=== PATIENT | male | born 2000 | race Caucasian/White ===

== ENCOUNTER 2018-07-30 20:32 | Emergency (ER) | payer BC ==
[~2018-07-30] VITALS: Ht 182.9 cm; Wt 68.0 kg
--- NOTE | 2018-07-30 20:47 | ED.ADGEN ---
Adult General Chief Complaint Chief Complaint " I was eating dinner tonight... and my Rt. nut started hurting.... I notice when I got home... it was more swollen... " HPI HPI Patient is a 17 year old male who presents with above hx and complaints of increased swelling in Rt side of testicular sack. Pt. denies and trauma, heavy lifting and no hx of penile discharge. No history of STDs. No history of previous swollen right testicle. Has only one sexual partner and always uses condoms. Did have sex this morning with no complaints. No history immunosuppression. No history of travel. No history of ill contacts. His partner does not complain of any discharge or problems. Patient is normally healthy. Normally follows with Dr. Ballesteros. Patient's right testicle sack is swollen as compared to left. There is no adenopathy. Rates pain 4/10. Declines any pain meds. Review of Systems Review of Systems Constitutional: Denies fever or chills [] Eyes: Denies change in visual acuity, redness, or eye pain [] HENT: Denies nasal congestion or sore throat [] Respiratory: Denies cough or shortness of breath [] Cardiovascular: No additional information not addressed in HPI [] GI: Denies abdominal pain, nausea, vomiting, bloody stools or diarrhea [] : Denies dysuria or hematuria [The]patient has complaints of right testicular pain. Musculoskeletal: Denies back pain or joint pain [] Integument: Denies rash or skin lesions [] Neurologic: Denies headache, focal weakness or sensory changes [] Endocrine: Denies polyuria or polydipsia [] All other systems were reviewed and found to be within normal limits, except as documented in this note. Family History Family History Noncontributory Current Medications Current Medications Current Medications Medications (Trade) Dose Ordered Sig/Jeri Start Time Stop Time Status Last Admin Dose Admin Ceftriaxone Sodium 1 gm/ Sodium Chloride 50 ml @ 100 mls/hr 1X ONCE 07/30/18 23:00 07/30/18 23:29 DC 07/30/18 22:36 100 MLS/HR Ceftriaxone Sodium (Rocephin) 1 gm STK-MED ONCE 07/30/18 22:32 07/30/18 22:33 DC Doxycycline Hyclate 100 mg STK-MED ONCE 07/30/18 23:08 07/30/18 23:09 DC Doxycycline Hyclate (Vibra-Tab) 100 mg 1X ONCE 07/30/18 23:00 07/30/18 23:20 DC 07/30/18 23:11 100 MG Info (Do NOT chart on this entry -- for MONITORING) 1 each PRN DAILY PRN 07/31/18 00:30 07/31/18 02:21 DC Iohexol (Omnipaque 240 Mg/ml) 50 ml 1X ONCE 07/31/18 01:00 07/31/18 01:01 DC 07/31/18 01:14 50 ML Iohexol (Omnipaque 300 Mg/ml) 75 ml 1X ONCE 07/31/18 01:00 07/31/18 01:01 DC 07/31/18 01:13 75 ML Sodium Chloride 50 ml @ As Directed STK-MED ONCE 07/30/18 22:31 07/30/18 22:32 DC See nursing for home meds Allergies Allergies Allergies Coded Allergies Type Severity Reaction Last Updated Verified No Known Drug Allergies 07/31/18 No Physical Exam Physical Exam Constitutional: Well developed, well nourished, no acute distress, non-toxic appearance. Tall. HENT: Normocephalic, atraumatic, bilateral external ears normal, oropharynx moist, no oral exudates, nose normal. [] Eyes: PERRLA, EOMI, conjunctiva normal, no discharge. [] Neck: Normal range of motion, no tenderness, supple, no stridor. [] Cardiovascular:Heart rate regular rhythm, no murmur [] Lungs & Thorax: Bilateral breath sounds clear to auscultation [] Abdomen: Bowel sounds normal, soft, no tenderness, no masses, no pulsatile masses. [] Rt. Testicle sack swollen- Testicle appears non-tender. Trans illumination - appears to be large hydrocele. No sack inflammatory changes. Skin: Warm, dry, no erythema, no rash. [] Back: No tenderness, no CVA tenderness. [] Extremities: No tenderness, no cyanosis, no clubbing, ROM intact, no edema. [] Neurologic: Alert and oriented X 3, normal motor function, normal sensory function, no focal deficits noted. [] Psychologic: Affect anxious, judgement normal, mood normal. [] Current Patient Data Vital Signs Vital Signs Date Time Temp Pulse Resp B/P (MAP) Pulse Ox O2 Delivery O2 Flow Rate FiO2 07/31/18 02:10 99 18 134/90 (105) 99 Room Air 07/30/18 20:46 98.0 Lab Results Laboratory Tests Test 07/30/18 20:48 07/30/18 21:15 Urine Collection Type Unknown Urine Color Straw Urine Clarity Clear Urine pH 7.0 Urine Specific [place] 1.010 Urine Protein Neg (NEG-TRACE) Urine Glucose (UA) Neg mg/dL (NEG) Urine Ketones (Stick) Neg mg/dL (NEG) Urine Blood Neg (NEG) Urine Nitrite Neg (NEG) Urine Bilirubin Neg (NEG) Urine Urobilinogen Dipstick 0.2 mg/dL (0.2 mg/dL) Urine Leukocyte Esterase Neg (NEG) Urine RBC 0 /HPF (0-2) Urine WBC 0 /HPF (0-4) Urine Squamous Epithelial Cells Occ /LPF Urine Bacteria 0 /HPF (0-FEW) White Blood Count 8.6 x10^3/uL (4.0-11.0) Red Blood Count 5.41 x10^6/uL (4.30-5.70) Hemoglobin 16.9 g/dL (13.0-17.5) Hematocrit 47.1 % (39.0-53.0) Mean Corpuscular Volume 87 fL (79-100) Mean Corpuscular Hemoglobin 31 pg (25-35) Mean Corpuscular Hemoglobin Concent 36 g/dL (31-37) Red Cell Distribution Width 12.8 % (11.5-14.5) Platelet Count 205 x10^3/uL (140-400) Neutrophils (%) (Auto) 70 % (31-73) Lymphocytes (%) (Auto) 19 % (24-48) L Monocytes (%) (Auto) 9 % (0-9) Eosinophils (%) (Auto) 3 % (0-3) Basophils (%) (Auto) 0 % (0-3) Neutrophils # (Auto) 6.0 x10^3uL (1.8-7.7) Lymphocytes # (Auto) 1.6 x10^3/uL (1.0-4.8) Monocytes # (Auto) 0.7 x10^3/uL (0.0-1.1) Eosinophils # (Auto) 0.2 x10^3/uL (0.0-0.7) Basophils # (Auto) 0.0 x10^3/uL (0.0-0.2) Prothrombin Time 11.1 SEC (9.4-11.4) Prothrombin Time INR 1.1 (0.9-1.1) PTT 25 SEC (23-33) Sodium Level 139 mmol/L (136-145) Potassium Level 3.5 mmol/L (3.5-5.1) Chloride Level 103 mmol/L (98-107) Carbon Dioxide Level 30 mmol/L (21-32) Anion Gap 6 (6-14) Blood Urea Nitrogen 11 mg/dL (8-26) Creatinine 1.0 mg/dL (0.7-1.3) Estimated GFR (Cockcroft-Gault) 96.3 Glucose Level 107 mg/dL (70-99) H Calcium Level 8.9 mg/dL (8.5-10.1) EKG EKG [] Radiology/Procedures Radiology/Procedures Ultrasound shows hydrocele. CT of abdomen shows no obvious hernia. Findings of hydrocele see formal report when available[] Course & Med Decision Making Course & Med Decision Making Pertinent Labs and Imaging studies reviewed. (See chart for details) Jock strap for comfort. Doxycycline 100 twice a day. Follow up with Dr. Taylor - urology- [phone]. Discussed Case with Dr. Taylor. Tylenol and ibuprofen as needed for discomfort. Return if any concerns. [] Final Impression Final Impression 1.[Rt. Hydrocele] Dragon Disclaimer Dragon Disclaimer This electronic medical record was generated, in whole or in part, using a voice recognition dictation system. CASSIDY ULLOA MD Jul 30, 2018 20:47
[2018-07-30 21:13] LABS: CLARITY,URINE CLEAR; COLOR,URINE STRAW
[2018-07-30 21:14] LABS: BACTERIA,URINE 0 /HPF (0-FEW); BILIRUBIN,URINE NEG (NEG); GLUCOSE,URINE NEG (NEG); NITRITE,URINE NEG (NEG); RBC,URINE 0 /HPF (0-2); SQUAMOUS EPITHELIAL CELL,UR OCC /LPF; UROBILINOGEN,URINE 0.2 mg/dL (0.2 mg/dL); WBC,URINE 0 /HPF (0-4)
[2018-07-30 21:30] LABS: BASO % 0 % (0-3); EOS # 0.2 x10^3/uL (0.0-0.7); EOS % 3 % (0-3); HEMATOCRIT 47.1 % (39.0-53.0); HEMOGLOBIN 16.9 g/dL (13.0-17.5); LYMPH # 1.6 x10^3/uL (1.0-4.8); LYMPH % 19 % (24-48); MEAN CORPUSCULAR HEMOGLOBIN 31 pg (25-35); MEAN CORPUSCULAR HGB CONC 36 g/dL (31-37); MEAN CORPUSCULAR VOLUME 87 fL (79-100); MONO # 0.7 x10^3/uL (0.0-1.1); MONO % 9 % (0-9); NEUT % 70 % (31-73); PLATELET COUNT 205 x10^3/uL (140-400); RED BLOOD COUNT 5.41 x10^6/uL (4.30-5.70); RED CELL DISTRIBUTION WIDTH 12.8 % (11.5-14.5); WHITE BLOOD COUNT 8.6 x10^3/uL (4.0-11.0)
[2018-07-30 21:36] LABS: CALCIUM 8.9 mg/dL (8.5-10.1); GFR 96.3; POTASSIUM 3.5 mmol/L (3.5-5.1)
[2018-07-30] MEDS ORDERED: IV NORMAL SALINE 50ML 50 ML ONE (22:31)
[2018-07-30] MEDS ORDERED: cefTRIAXone SODIUM 1 GM VIAL IV ONE (22:32)
--- NOTE | 2018-07-30 22:35 | RAD ---
Ultrasound the scrotum. HISTORY: Right testicular pain and swelling Ultrasound was used to evaluate the scrotum. There is a large right hydrocele. Epididymis on the right is not enlarged. There is flow with color imaging and Doppler in the right testicle. There is no right testicular mass. Left testicle also shows no evidence of a mass. There is flow in the left testicle with color imaging and Doppler. Left epididymis is not enlarged. There is a tiny epididymal cyst on the left. IMPRESSION: 1. Large right hydrocele. 2. No testicular mass. 3. No evidence of torsion. Electronically signed by: Behzad Albrecht MD (07/30/2018 10:31 PM) [facility]
[2018-07-30] MEDS ORDERED: DOXYCYCLINE HYCLATE 100 MG TABLET PO ONE (23:00)
[2018-07-30] MEDS ORDERED: DOXYCYCLINE HYCLATE 100 MG VIAL IV ONE (23:08)
[2018-07-30] MEDS ORDERED: DOXY100T9 PO (23:50)
[2018-07-31] MEDS ORDERED: IOHEXOL 240 MG/ML 50ML VIAL. ONE (00:06)
[2018-07-31] MEDS ORDERED: CONTRAST GIVEN MC PRN (00:30)
[2018-07-31] MEDS ORDERED: IOHEXOL 240 MG/ML 50ML VIAL. PO ONE (01:00)
[2018-07-31] MEDS ORDERED: IOHEXOL 300 MG/ML 75 ML VIAL. IV ONE (01:00)
--- NOTE | 2018-07-31 01:49 | RAD ---
CT pelvis with contrast HISTORY: Right testicular pain and swelling Axial helical images of the pelvis obtained after demonstration of oral contrast and 75 cc IV Isovue-370 contrast FINDINGS: There is a right-sided hydrocele. There is a short segment of moderate wall thickening of the small bowel in the mid pelvis. The appendix is not well seen but appears normal. There is a trace of free fluid in the pelvis. IMPRESSION: 1. Trace of free fluid in the pelvis. 2. Short segment of moderate wall thickening of the small bowel could be inflammatory or infectious enteritis. 3. Right-sided hydrocele. Electronically signed by: Wade Huang III, MD (07/31/2018 1:46 AM) [facility]
[2018-07-31 02:10] VITALS: BP 134/90
== END 2018-07-31 02:21 | disposition home or self-care (01) ==
LOC: ER 20:32
DX: N43.2 Other hydrocele (principal)
CPT/HCPCS: 36415; 72193; 76870; 80048; 81001; 85025; 85610; 85730; 96365; 99285; J0696; Q9966; Q9967

== ENCOUNTER → 2019-05-18 | Outpatient (CLI) | payer BC ==
[~2019-05-18] MED LIST: DOXY100T9 PO
[2019-05-18 20:46] LABS: FREE T4 0.99 ng/dL (0.76-1.46); THYROID STIM HORMONE (TSH) 2.712 uIU/mL (0.358-3.740)
== END | disposition home or self-care (01) ==
LOC: LAB 07:37
PROVIDERS: ATTEND Pediatrics
DX: Z13.220 Encounter for screening for lipoid disorders (principal); Z13.29 Encounter for screening for other suspected endocrine disorder
CPT/HCPCS: 80061; 84439; 84443

== ENCOUNTER 2020-02-04 23:32 | Emergency (ER) | payer BC ==
[~2020-02-04] VITALS: Ht 185.4 cm; Wt 65.0 kg
[~2020-02-04 23:32] MED LIST changes: +DOXY-96 PO; -DOXY100T9 PO
--- NOTE | 2020-02-04 23:35 | PHYS DOC ---
Past History Past Medical History: No Pertinent History Past Surgical History: Other Alcohol Use: None Drug Use: None General Adult HPI: HPI: ".. I was cutting with a exacto knife..it was a final project for Type set class.. I am a student at [employer].... Vahe... Mc... it is not my right hand.. 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 Laceration is avulsed and part of flap is avascular. Patient is right-hand dominant. Patient received his tetanus update in August. Patient has flexion and extension. Finger was cleaned immediately after laceration. Injury occurred approximately 1 hour prior to presenting to the emergency department. No recent travel outside the [place] area. No specific ill contacts. No history immunosuppression. Pt. follows with Dr. Chavez. Review of Systems: Review of Systems: Constitutional: Denies fever or chills Eyes: Denies change in visual acuity HENT: Denies nasal congestion or sore throat Respiratory: Denies cough or shortness of breath Cardiovascular: Denies chest pain or edema GI: Denies abdominal pain, nausea, vomiting, bloody stools or diarrhea : Denies dysuria Musculoskeletal: Denies back pain or joint pain Integument: Denies rash. Complaints of laceration of Lt index finger Neurologic: Denies headache, focal weakness or sensory changes Endocrine: Denies polyuria or polydipsia Lymphatic: Denies swollen glands Psychiatric: Denies depression or anxiety Heart Score: Risk Factors: Risk Factors: DM, Current or recent (<one month) smoker, HTN, HLP, family history of CAD, obesity. Risk Scores: Score 0 - 3: 2.5% MACE over next 6 weeks - Discharge Home Score 4 - 6: 20.3% MACE over next 6 weeks - Admit for Clinical Observation Score 7 - 10: 72.7% MACE over next 6 weeks - Early Invasive Strategies Family History: Family History: Noncontributory Current Medications: Current Meds: See nursing for home meds Allergies: Allergies: Allergies Coded Allergies Type Severity Reaction Last Updated Verified No Known Drug Allergies 07/31/18 No Physical Exam: PE: Constitutional:In acute distress, non-toxic appearance. []Very slender. HENT: Normocephalic, atraumatic, bilateral external ears normal, oropharynx moist, no oral exudates, nose normal. [] Eyes: PERRLA, EOMI, conjunctiva normal, no discharge. [] Neck: Normal range of motion, no tenderness, supple, no stridor. [] Cardiovascular:Heart rate regular rhythm, no murmur [] Lungs & Thorax: Bilateral breath sounds equal at apex to auscultation [] Abdomen: Bowel sounds normal, soft, no tenderness, no masses, no pulsatile masses. [] Skin: Warm, dry, no erythema, no rash. [] Laceration left index finger as per HPI Back: No tenderness, no CVA tenderness. [] Extremities: No tenderness, no cyanosis, no clubbing, ROM intact, no edema. [] Neurologic: Alert and oriented X 3, normal motor function, normal sensory function, no focal deficits noted. [] Psychologic: Affect anxious, judgement normal, mood normal. [] EKG: EKG: [] Radiology/Procedures: Radiology/Procedures: [] Course & Med Decision Making: Course & Med Decision Making Pertinent Labs and Imaging studies reviewed. (See chart for details) Procedure note: Laceration repair- Lt distal index finger. . The laceration cleaned with surgical soap and water. The 2 cm laceration received a digital block with 2% lidocaine then a localized injection of the laceration edge. Laceration re-irrigated with the excess lidocaine. Closed with 4-simple-4 -0 Prolene sutures. Dressing was antibiotic ointment Bactracin. Band-Aid and tube gauze. Patient keep laceration clean and dry. Sutures to be removed in 10 days. Once initial dressing removed apply Polysporin 4 times a day. Return if any concerns. Follow-up with primary care. Patient informed the avascular portion of his laceration may slough. Monitor closely for signs of infection. Patient to take Tylenol or Ibuprofen as needed for pain tonight. Impression: 1. 2 cm distal laceration to Lt Index finger[] Dragon Disclaimer: Dragon Disclaimer: This electronic medical record was generated, in whole or in part, using a voice recognition dictation system. Departure Departure: Disposition: 01 HOME/RESIDENCE PRIOR TO ADM Condition: STABLE Referrals: GRAHAM CHAVEZ MD (PCP) Mildred Disclaimer This chart was dictated in whole or in part using Voice Recognition software in a busy, high-work load, and often noisy Emergency Department environment. It may contain unintended and wholly unrecognized errors or omissions. Dragon Disclaimer This chart was dictated in whole or in part using Voice Recognition software in a busy, high-work load, and often noisy Emergency Department environment. It may contain unintended and wholly unrecognized errors or omissions. CASSIDY ULLOA MD February 04, 2020 23:35
[2020-02-05] MEDS ORDERED: BACITRACIN ZINC TOPICAL OINT PACKET. TP ONE
[2020-02-05] MEDS ORDERED: LIDOCAINE 2% 20 ML VIAL. IJ ONE
[2020-02-05 00:35] VITALS: BP 129/82
== END 2020-02-05 00:35 | disposition home or self-care (01) ==
LOC: ER 23:32
DX: S61.211A Laceration without foreign body of left index finger without damage to nail, initial encounter (principal); W26.0XXA Contact with knife, initial encounter; Y93.89 Activity, other specified; Y92.89 Other specified places as the place of occurrence of the external cause; Y99.8 Other external cause status
CPT/HCPCS: 12001; 99282; J2001